=== PATIENT | female | born 1995 | race Two or more races ===

== ENCOUNTER 2023-01-31 14:54 | Emergency (ER) | payer OTHER ==
[~2023-01-31] VITALS: Ht 160 cm; Wt 80.7 kg
[2023-01-31] MEDS ORDERED: PRENATAL CAPLE1 EAC1 (15:19)
== END 2023-01-31 17:02 | disposition home or self-care (01) ==
LOC: ER 14:54
DX: H10.89 Other conjunctivitis (principal)

== ENCOUNTER 2024-04-10 21:36 | Emergency (ER) | payer OTHER ==
[~2024-04-10] VITALS: Ht 165.1 cm; Wt 59.0 kg
[~2024-04-10 21:36] MED LIST: BENZONATATE100 MG PO; FLONASE16 GM NASAL; PRENATAL CAPLE1 EAC1; QC TUSSIN DM L118 ML PO
[2024-04-10] MEDS ORDERED: MEPERIDINE HCL/PF 25 MG/ML VIAL IM STA (23:41)
[2024-04-10] MEDS ORDERED: PROMETHAZINE HCL 25 MG/ML AMPUL IM STA (23:41)
[2024-04-10] MEDS ORDERED: RINGERS SOLUTION,LACTATED 1,000 ML IV STA (23:42)
[2024-04-11 00:28] LABS: HEMATOCRIT 34.8 % (36.0-45.00); MEAN CELL VOLUME 85.6 fL (80.00-100.00); MEAN CORPUSCULAR HEMOGLOBIN 29.7 pg (27.00-32.0); MEAN CORPUSCULAR HGB CONC 34.6 g/dl (32.0-36.0); PLATELET COUNT 244 K/uL (150-450); RED BLOOD COUNT 4.06 M/uL (4.00-6.00); RED CELL DISTRIBUTION WIDTH 13.3 % (11.5-14.5)
[2024-04-11 01:27] LABS: URINE APPEARANCE Cloudy; URINE BILIRRUBIN Small (NEGATIVE); URINE BLOOD Negative; URINE COLOR Dark Yellow; URINE GLUCOSE Negative (NEGATIVE); URINE LEUKOCYTE Trace; URINE NITRATE Negative; URINE PROTEIN 30 (NEGATIVE)
[2024-04-11 01:31] LABS: URINE BACTERIA 5100.4 uL (0.0-1933); URINE EPITHELIAL CELLS 46.3 uL (0.0-38.8); URINE RBC 13.4 uL (0.0-20.8); URINE WBC 236.5 uL (0.0-23.2)
[2024-04-11] MEDS ORDERED: KETO10TA2 PO (05:13)
[2024-04-11] MEDS ORDERED: CEPHALEXIN500 MG PO (05:13)
== END 2024-04-11 06:03 ==
LOC: ER 21:37
DX: N39.0 Urinary tract infection, site not specified (principal)

== ENCOUNTER 2025-03-13 14:02 | Emergency (ER) | payer OTHER ==
[~2025-03-13] VITALS: Ht 167.6 cm; Wt 85.7 kg
[~2025-03-13 14:02] MED LIST changes: +CEPHALEXIN500 MG PO; +KETO10TA2 PO
[2025-03-13 14:24] VITALS: BP 109/77; O2SAT 99
[2025-03-13] MEDS ORDERED: 0.9 % SODIUM CHLORIDE 500 ML IV STA (17:33)
[2025-03-13] MEDS ORDERED: ONDANSETRON HCL 2 MG/ML VIAL IV STA (17:33)
[2025-03-13] MEDS ORDERED: BENZONATATE 100 MG CAPSULE PO STA (17:34)
[2025-03-13] MEDS ORDERED: ONDANSETRON HCL 2 MG/ML VIAL ONE (17:41)
[2025-03-13 18:49] LABS: BASO % 0.4 % (0.1-1.2); EOS # 0.01 (0.04-0.54); EOS % 0.2 % (0.7-7.0); HEMATOCRIT 33.1 % (34.1-44.9); HEMOGLOBIN 11.4 g/dL (11.2-15.7); LYMPH % 30.2 % (19.3-53.1); MEAN CORPUSCULAR HEMOGLOBIN 28.9 pg (25.6-32.2); MONO # 0.41 (0.24-0.82); MONO % 8.3 % (4.7-12.5); NEUT # 3.01 (1.56-6.13); NEUT % 60.7 % (34.0-71.1); PLATELET COUNT 197 K/uL (163-369); RED BLOOD COUNT 3.95 M/uL (3.93-5.22); RED CELL DISTRIBUTION WIDTH 12.4 % (11.6-14.4)
[2025-03-13 19:02] LABS: COVID-19 AG NEGATIVE (NEGATIVE)
[2025-03-13 19:20] LABS: INFLUENZA A AG NEGATIVE (NEGATIVE)
[2025-03-13 19:21] LABS: INFLUENZA B AG POSITIVE (NEGATIVE)
[2025-03-13 19:22] LABS: ALBUMIN 3.6 gm/dL (3.4-5.0); BILIRUBIN TOTAL 0.6 mg/dL (0.3-1.2); CALCIUM 8.5 mg/dL (8.5-10.1); CREATININE SERUM 0.94 mg/dL (0.55-1.02); GFR 69.45; GLOBULINA 4.3 G/DL (2.4-3.5); POTASSIUM 3.36 mEq/L (3.5-5.1); TOTAL PROTEIN 7.9 gm/dL (6.4-8.2)
[2025-03-13] MEDS ORDERED: OSELTAMIVIR PHOSPHATE 75 MG CAPSULE PO STA (20:16)
[2025-03-13] MEDS ORDERED: OSELTAMIVIR PHOSPHATE 75 MG CAPSULE PO ONE (20:20)
[2025-03-13] MEDS ORDERED: GILTUSS HONEY118 ML PO (21:46)
[2025-03-13] MEDS ORDERED: OSEL75CA PO (21:46)
== END 2025-03-13 23:01 | disposition home or self-care (01) ==
LOC: ER 14:18
PROVIDERS: Preventive Medicine Public Health & General Preventive Medicine
DX: J10.1 Influenza due to other identified influenza virus with other respiratory manifestations (principal); Z20.822 Contact with and (suspected) exposure to COVID-19